=== PATIENT | female | born 1990 | race Caucasian/White ===

== ENCOUNTER 2019-01-09 14:28 | Emergency (ER) | payer OTHER ==
[~2019-01-09] VITALS: Wt 71.0 kg
[2019-01-09 14:50] VITALS: BP 117/81; PULSE 78; RESP 18
[2019-01-09] MEDS ORDERED: FLUORESCEIN STRIP RIGHT EYE ONE (16:30)
[2019-01-09] MEDS ORDERED: ERYT1OIN6 RIGHT EYE (16:30)
[2019-01-09] MEDS ORDERED: TETRACAINE 0.5% 4 ML OPH OP ONE (16:30)
--- NOTE | 2019-01-09 16:32 | ERD ---
ER Documentation Chief Complaint Chief Complaint R EYE PAIN X 3 DAYS HPI Is a 29-year-old female who states she was getting her eyelashes done yesterday and she thinks that the geography head got some of the glue into her eye because she is been having irritation in the eye as well as worsening redness. She does wear glasses. At the time she was wearing contacts but she took them out. She denies any changes to her vision or double or blurry vision. No fever. No pain with eye movement. ROS All systems reviewed and are negative except as per history of present illness. Medications Home Meds Active Scripts Erythromycin Base (Erythromycin) 1 Gm Oint...g., 1 APPLIC RIGHT EYE QID for 7 Days Prov:KELLI MARTINEZ PA-C 01/09/19 Allergies Allergies: Coded Allergies: No Known Allergy (Unverified , 01/09/19) FmHx Family History: No diabetes Physical Exam Vitals Vital Signs Date Temp Pulse Resp B/P (MAP) Pulse Ox O2 O2 Flow FiO2 Time Delivery Rate 01/09/19 98.0 78 18 117/81 99 14:50 (93) Physical Exam Const: No acute distress Head: Atraumatic Eyes: Right conjunctiva is injected, pupils equal round reactive to light, extraocular movements intact, visual acuity within normal limits, fluorescein exam is negative ENT: Normal External Ears, Nose and Mouth. Neck: Full range of motion. No meningismus. Resp: Clear to auscultation bilaterally Cardio: Regular rate and rhythm, no murmurs Results 24 hrs Current Medications Medications Dose Sig/Emy Start Time Status Last (Trade) Ordered Route PRN Stop Time Admin Dose Reason Admin Tetracaine 1 drop ONCE ONCE 01/09/19 HCl OP 16:30 (Tetracaine 01/09/19 16:31 0.5% Steri-Unit Elen) Fluorescein 1 strip ONCE ONCE 01/09/19 Sodium RIGHT EYE 16:30 (Shgxs-L-Epir 01/09/19 16:31 p) Procedures/MDM She has conjunctivitis after getting glue from getting her eyelashes done yesterday. No evidence of ocular emergency. Patient is discharged with erythromycin ophthalmic ointment. Patient counseled regarding my diagnostic impression and care plan. Prior to discharge all questions answered. Pt agrees with treatment plan and understands strict return precautions. Pt is instructed to follow up with primary care provider within 24-48 hours. Precautionary instructions provided including instructions to return to the ER if not improving or for any worsening or changing symptoms or concerns. Departure Diagnosis: Primary Impression: Eye injury Condition: Stable Patient Instructions: Conjunctivitis Caused by Irritation Additional Instructions: Call your primary care doctor TOMORROW for an appointment during the next 1-2 days.See the doctor sooner or return here if your condition worsens before your appointment time. KELLI MARTINEZ PA-C Jan 09, 2019 16:32
== END 2019-01-09 17:17 | disposition home or self-care (01) ==
LOC: FTE 14:28
DX: S05.91XA Unspecified injury of right eye and orbit, initial encounter (principal); X58.XXXA Exposure to other specified factors, initial encounter; Y92.9 Unspecified place or not applicable
CPT/HCPCS: Z7502; Z7610; 99283